=== PATIENT | male | born 1970 | race Caucasian/White ===

== ENCOUNTER 2017-11-25 11:50 | Emergency (ER) | END 2017-11-25 14:13 | disposition home or self-care (01) ==

== ENCOUNTER → 2019-05-19 | Emergency (ER) | payer MEDICAID, OTHER ==
[~2019-05-19] VITALS: Wt 72.6 kg
[~2019-05-19] MED LIST: MECL12.574 PO
[2019-05-19 13:15] VITALS: BP 136/75; PULSE 70; RESP 18
--- NOTE | 2019-05-19 17:32 | ERD ---
ER Documentation Chief Complaint Chief Complaint intermittent dizziness and gen fatigue for the past week, no neuro def HPI 48 year old male presents to the ED complaining of dizziness and fatigue x 1 week. 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 He states that he has had several CT scans and MRI of his brain showing the infection being treated. He states he has not seen a neurologist since Oct 2018 because the neurologist works far away in [place]. In addition, he reports 1 episode of a Grandmal seizure in which he was taking Keppra prescribed to him by the neurologist. He stopped taking Keppra in Oct 2018 and has not experienced a seizure since. Today, he is reporting feeling dizzy and weak. He denies any other symptoms. He states that he has gone to [facility] ED several times in the past few months in which they have told him everything is ok. He is asking to speak to a neurologist today. He reports he does not have a PCP also. Pt denies any CP, shoulder pain, ABD pain, N/V/D, SOB, fevers, chills, or any other symptoms. ROS All systems reviewed and are negative except as per history of present illness. Medications Home Meds Active Scripts Meclizine Hcl* (Antivert*) 12.5 Mg Tab, 25 MG PO Q6H PRN for DIZZINESS, #30 TAB Prov:VIVIANA LESLIE PA-C 05/19/19 PMhx/Soc Hx Alcohol Use: No Hx Substance Use: No Hx Tobacco Use: No Smoking Status: Never smoker FmHx Family History: No diabetes Physical Exam Vitals Vital Signs Date Temp Pulse Resp B/P (MAP) Pulse Ox O2 O2 Flow FiO2 Time Delivery Rate 05/19/19 98.0 70 18 136/75 98 13:15 (95) Physical Exam Const: No acute distress Head: Atraumatic Eyes: Normal Conjunctiva, PERRLA ENT: Normal External Ears, Nose and Mouth. Neck: Full range of motion. No meningismus. Resp: Clear to auscultation bilaterally Cardio: Regular rate and rhythm, no murmurs Abd: Soft, non tender, non distended. 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, follows commands well Psych: Normal Mood and Affect Result Diagram: 05/19/19 1644 05/19/19 1644 Results 24 hrs Laboratory Tests Test 05/19/19 16:44 White Blood Count 7.8 10^3/ul Red Blood Count 5.27 10^6/ul Hemoglobin 16.2 g/dl Hematocrit 46.0 % Mean Corpuscular Volume 87.3 fl Mean Corpuscular Hemoglobin 30.7 pg Mean Corpuscular Hemoglobin Concent 35.2 g/dl Red Cell Distribution Width 12.4 % Platelet Count 283 10^3/UL Mean Platelet Volume 9.4 fl Immature Granulocytes % 0.300 % Neutrophils % 57.8 % Lymphocytes % 34.1 % Monocytes % 6.0 % Eosinophils % 1.3 % Basophils % 0.5 % Nucleated Red Blood Cells % 0.0 /100WBC Immature Granulocytes # 0.020 10^3/ul Neutrophils # 4.5 10^3/ul Lymphocytes # 2.7 10^3/ul Monocytes # 0.5 10^3/ul Eosinophils # 0.1 10^3/ul Basophils # 0.0 10^3/ul Nucleated Red Blood Cells # 0.0 10^3/ul Sodium Level 143 mmol/L Potassium Level 3.9 mmol/L Chloride Level 105 mmol/L Carbon Dioxide Level 28 mmol/L Anion Gap 10 Blood Urea Nitrogen 14 mg/dl Creatinine 0.63 mg/dl Est Glomerular Filtrat Rate mL/min > 60 mL/min Glucose Level 102 mg/dl Calcium Level 9.6 mg/dl Procedures/MDM ED COURSE: The patient was stable throughout ED course. I kept the patient informed of laboratory and diagnostic imaging results throughout the ED course. EKG: Read by Dr. Victor, attending physician. EKG shows normal sinus rhythm at a rate of 62 bpm. No arrhythmias, acute ST elevations or T wave changes were noted. PROCEDURES: none MEDICATIONS GIVEN: [None.] MEDICAL DECISION MAKING: Patient is a 48 year old male presenting with fatigue and dizziness x 1 week. Pt is s/p neurocysticercosis infection and is concerned for brain and heart issues as a result. On physical exam, pt showed no acute distress. Neuro exam was completely normal without any deficits. EKG was unremarkable and CBC, BMP were all WNL. Pt has gone to [facility] ED several times for these symptoms and they have told him everything is ok. Pt does not have a PCP at this time and a list of local community clinics was given to the pt to establish care. Low suspicion for acute myocardial infarction, pneumothorax, pneumonia, cardiac tamponade, Zhfhq-Ftxxybwgj-Bkpqp Syndrome, Brugada Syndrome, pulmonary embolism, AAA, aortic dissection, thoracic aortic dissection, endocarditis, myocarditis, pericarditis, Boerhaaves syndrome, cardiac dysrhythmias,meningitis, intracranial bleed, seizure, stroke, TIA or other emergent conditions. Vital signs were reviewed. Patient is afebrile. Patient was not hypoxic. Patient was hemodynamically stable. Patient was told to follow up with primary care for further care and management. PRESCRIPTION: Meclizine DISCHARGE: At this time, patient is stable for discharge and outpatient management. I have instructed the patient to follow-up with his/her primary care physician in 1-2 days. I have discussed with the patient the possibility of needing to see a specialist for further workup and imaging studies if symptoms persist. I have instructed the patient to promptly return to the ER for any new or worsening symptoms including increased pain, fever, nausea, vomiting, weakness or LOC. The patient expressed understanding of and agreement with this plan. All questions were answered. Home care instructions were provided. Disclaimer: Inadvertent spelling and grammatical errors are likely due to EHR/dictation software use and do not reflect on the overall quality of patient care. Also, please note that the electronic time recorded on this note does not necessarily reflect the actual time of the patient encounter. Departure Diagnosis: Primary Impression: Fatigue Fatigue type: unspecified Qualified Codes: R53.83 - Other fatigue Condition: Fair Patient Instructions: Weakness, Unk Cause Referrals: COMMUNITY CLINICS YOU HAVE RECEIVED A MEDICAL SCREENING EXAM AND THE RESULTS INDICATE THAT YOU DO NOT HAVE A CONDITION THAT REQUIRES URGENT TREATMENT IN THE EMERGENCY DEPARTMENT. FURTHER EVALUATION AND TREATMENT OF YOUR CONDITION CAN WAIT UNTIL YOU ARE SEEN IN YOUR DOCTORS OFFICE WITHIN THE NEXT 1-2 DAYS. IT IS YOUR RESPONSIBILITY TO MAKE AN APPOINTMENT FOR FOLOW-UP CARE. IF YOU HAVE A PRIMARY DOCTOR --you should call your primary doctor and schedule an appointment IF YOU DO NOT HAVE A PRIMARY DOCTOR YOU CAN CALL OUR PHYSICIAN REFERRAL HOTLINE AT IF YOU CAN NOT AFFORD TO SEE A PHYSICIAN YOU CAN CHOSE FROM THE FOLLOWING [facility] [address] [facility] [address] [facility] [address] [facility] [address] [facility] [address] [facility] [facility] [address] [facility]. [facility] YOU HAVE RECEIVED A MEDICAL SCREENING EXAM AND THE RESULTS INDICATE THAT YOU DO NOT HAVE A CONDITION THAT REQUIRES URGENT TREATMENT IN THE EMERGENCY DEPARTMENT. FURTHER EVALUATION AND TREATMENT OF YOUR CONDITION CAN WAIT UNTIL YOU ARE SEEN IN YOUR DOCTORS OFFICE WITHIN THE NEXT 1-2 DAYS. IT IS YOUR RESPONSIBILITY TO MAKE AN APPOINTMENT FOR FOLOW-UP CARE. IF YOU HAVE A PRIMARY DOCTOR --you should call your primary doctor and schedule and appointment IF YOU DO NOT HAVE A PRIMARY DOCTOR YOU CAN CALL OUR PHYSICIAN REFERRAL HOTLINE AT . IF YOU CAN NOT AFFORD TO SEE A PHYSICIAN YOU CAN CHOSE FROM THE FOLLOWING [facility] INSTITUTIONS: [facility] [address] [place] [address] [facility] [address] [place], [place] [id number] [place] [address] [address] [place] [address] Additional Instructions: Call one of the numbers in the packet to a community clinic to find a primary care provider. Llame al doctor MAANA y emily neftali CARIDAD PARA DENTRO DE 1-2 ARECHIGA.Dgale a la secretaria que nosotros le instruimos hacer esta caridad.Avise o llame si de la rosa condicin se empeora antes de la caridad. Regresa aqui si peor o no mejor. VIVIANA LESLIE PA-C May 19, 2019 17:32
== END | disposition home or self-care (01) ==
LOC: FTE 13:07
DX: R53.83 Other fatigue (principal)
CPT/HCPCS: 80048; 85025; 93005